=== PATIENT | male | born 1985 | race Caucasian/White ===

== ENCOUNTER 2021-09-14 08:19 | Emergency (ER) | payer OTHER ==
[~2021-09-14] VITALS: Ht 177.8 cm; Wt 80.7 kg
[2021-09-14 08:21] VITALS: BP 128/85
--- NOTE | 2021-09-14 08:32 | NUR ---
PT AMBULATED TO BED 11.
--- NOTE | 2021-09-14 08:40 | NUR ---
ESTEFANI JARRETT AT THE BEDSIDE
--- NOTE | 2021-09-14 08:44 | NUR ---
Note undone in EDM - 09/14/21 at 0847 by [email or web address] 36 Y/O MALE WITH CC OF N/V/D; SKIN IS INTACT, PINK/WARM/DRY; AAOX4, PERRL, WITH EVEN AND STEADY GAIT; LUNGS CLEAR BL, BREATHING UNLABORED; HR EVEN AND REGULAR, BL PERIPHERAL PULSES PRESENT; BS ACTIVE X4, NO TENDERNESS TO PALPATION, NO HEPATOSPLENOMEGALLY PALPATED, RESONANT TO PERCUSSION; PT DENIES ANY FEVER, CP, SOB, OR COUGH AT THIS TIME; PT STATES 0/10 PAIN AT THIS TIME; VSS; PATIENT POSITIONED FOR COMFORT; HOB ELEVATED; BEDRAILS UP X1; BED DOWN.
[2021-09-14] MEDS ORDERED: DICYCLOMINE HCL LIQUID 20 MG, ALUMINUM HYD/MAG/SIMETHICONE 30 ML, LIDOCAINE VISCOUS 2% ... PO ONE ×3 (08:45)
[2021-09-14] MEDS ORDERED: ONDANSETRON 4 MG ODT PO ONE (08:45)
--- NOTE | 2021-09-14 08:47 | NUR ---
36 Y/O MALE WITH CC OF N/V/D AFTER EATING DINNER LAST NIGHT AT THE [employer]; PT DENIES BLOOD IN EMESIS OR STOOL. SKIN IS INTACT, PINK/WARM/DRY; AAOX4, PERRL, WITH EVEN AND STEADY GAIT; LUNGS CLEAR BL, BREATHING UNLABORED; HR EVEN AND REGULAR, BL PERIPHERAL PULSES PRESENT; BS ACTIVE X4, NO TENDERNESS TO PALPATION, NO HEPATOSPLENOMEGALLY PALPATED, RESONANT TO PERCUSSION; PT DENIES ANY FEVER, CP, SOB, OR COUGH AT THIS TIME; PT STATES 0/10 PAIN AT THIS TIME; VSS; PATIENT POSITIONED FOR COMFORT; HOB ELEVATED; BEDRAILS UP X1; BED DOWN.
[2021-09-14] MEDS ORDERED: ALUMINUM HYD/MAG/SIMETHICONE 30 ML UDC ONE (08:56)
[2021-09-14] MEDS ORDERED: DICYCLOMINE HCL LIQUID 10 MG/5 ML UDC ONE (08:56)
[2021-09-14] MEDS ORDERED: FAMO-92 PO (09:34)
[2021-09-14] MEDS ORDERED: BEN10 PO (09:34)
[2021-09-14] MEDS ORDERED: ONDA-188 SL (09:34)
--- NOTE | 2021-09-14 09:42 | NUR ---
PT STATES FEELING CHILLS. TEMPERATURE TAKEN 98.5 F. BLANKET GIVEN.
--- NOTE | 2021-09-14 09:50 | NUR ---
PT GIVEN JUICE AND CRACKERS. NO NAUSEA EXPERIENCED.
--- NOTE | 2021-09-14 09:51 | NUR ---
Patient appears to be resting comfortably in bed. Vital Signs within normal limits. Respirations even and unlabored.
--- NOTE | 2021-09-14 10:05 | NUR ---
Patient discharged with v/s stable. Written and verbal after care instructions given and explained. Patient alert, oriented and verbalized understanding of instructions. Ambulatory with steady gait. All questions addressed prior to discharge. ID band removed. Patient advised to follow up with PMD. Rx of ZOFRAN, PEPCID, AND BENTYL given. Patient educated on indication of medication including possible reaction and side effects. Opportunity to ask questions provided and answered.
[2021-09-14 10:06] VITALS: BP 130/75
== END 2021-09-14 10:05 | disposition home or self-care (01) ==
LOC: MED 08:19
DX: A08.4 Viral intestinal infection, unspecified (principal); A05.9 Bacterial foodborne intoxication, unspecified; Z79.899 Other long term (current) drug therapy
CPT/HCPCS: 99283; Q0162

== ENCOUNTER 2021-09-15 00:22 | Emergency (ER) | payer OTHER ==
[~2021-09-15] VITALS: Ht 175.3 cm; Wt 81.9 kg
[~2021-09-15 00:22] MED LIST: BEN10 PO; FAMO-92 PO; ONDA-188 SL
[2021-09-15 00:35] VITALS: BP 123/57
[2021-09-15] MEDS ORDERED: NACL 0.9% 1,000 ML IV ONE ×2 (00:40→01:50)
[2021-09-15] MEDS ORDERED: ONDANSETRON 4 MG/2 ML VIAL IVP ONE (00:40)
--- NOTE | 2021-09-15 00:41 | NUR ---
PT TAKEN TO BED 11.
--- NOTE | 2021-09-15 00:52 | NUR ---
REPORTS RELIEF FROM SYMPTOMS THAT BROUGHT HIM TO ED EARLIER TODAY. NO NAUSEA AND NO VOMITING. REPORTS UPSET STOMACH
[2021-09-15 01:04] LABS: BASOPHILS % (AUTO) 0.6 % (0.0-2.0); EOSINOPHILS % (AUTO) 0.6 % (0.0-4.0); HEMATOCRIT 39.7 % (36-52); HEMOGLOBIN 13.8 g/dL (12.0-18.0); LYMPHOCYTES # (AUTO) 0.6 K/uL (2.0-11.5); LYMPHOCYTES % (AUTO) 10.5 % (20.5-51.1); MEAN CORPUSCULAR HEMOGLOBIN 31 pg (27-31); MEAN CORPUSCULAR HGB CONC 35 g/dL (33-37); MEAN CORPUSCULAR VOLUME 88.3 fL (80-94); MONOCYTES # (AUTO) 0.4 K/uL (0.8-1.0); MONOCYTES % (AUTO) 6.7 % (1.7-9.3); NEUTROPHILS # (AUTO) 4.8 K/uL (1.8-7.7); NEUTROPHILS % (AUTO) 81.6 % (42.2-75.2); PLATELET COUNT (AUTO) 142 K/uL (140-450); RED CELL DISTRIBUTION WIDTH 12.8 % (11.6-13.7); WHITE BLOOD COUNT (AUTO) 5.8 K/uL (4.8-10.8)
[2021-09-15 01:24] LABS: ALBUMIN 3.8 g/dL (3.4-5.0); ANION GAP 14.9 (8-16); CARBON DIOXIDE 24.7 mmol/L (21-32); CREATININE 1.1 mg/dL (0.6-1.3); POTASSIUM 3.6 mmol/L (3.5-5.1); TOTAL BILIRUBIN 1.2 mg/dL (0.0-1.0)
[2021-09-15] MEDS ORDERED: KETOROLAC 30 MG/ML VIAL IVP ONE (01:50)
--- NOTE | 2021-09-15 02:53 | NUR ---
PATIENT CLEARED FOR DISHCARGE AT THIS TIME. ADVISED TO FOLLOW UP WITH PCP AND RETURN IF OCNDITION WORSENS. NO OTHER COMPLAINTS OR CONECRNS AT THIS TIME FOLLOWING DISCHARGE TEACHING.
[2021-09-15 02:54] VITALS: BP 132/71
== END 2021-09-15 02:53 | disposition home or self-care (01) ==
LOC: MED 00:22
DX: R11.2 Nausea with vomiting, unspecified (principal); R19.7 Diarrhea, unspecified; M79.10 Myalgia, unspecified site; Z79.899 Other long term (current) drug therapy; Z98.890 Other specified postprocedural states
CPT/HCPCS: 36415; 80053; 83690; 85025; 96361; 96374; 96375; 99284; J1885; J2405; J7030